=== PATIENT | male | born 1990 | race Caucasian/White ===

== ENCOUNTER → 2021-07-01 | Outpatient (CLI) | payer OTHER | LOC: COL.VAS 14:02 | DX: R06.02 Shortness of breath (principal); Z20.822 Contact with and (suspected) exposure to COVID-19 ==

== ENCOUNTER → 2021-08-12 | Outpatient (CLI) | payer OTHER | LOC: COL.PUL 08-11 10:00 | DX: R06.02 Shortness of breath (principal) | CPT/HCPCS: J7674 ==